=== PATIENT | female | born 1980 | race Caucasian/White ===

== ENCOUNTER 2021-03-15 08:49 | Observation (INO) | payer SELFPAY ==
[2021-03-15] VITALS (25 sets, daily range): BP systolic 103–133; BP diastolic 54–98; PULSE 61–91; RESP 16–26; TEMP 36.3–36.8; O2SAT 96–100; BMI 19.2
--- NOTE | 2021-03-15 09:01 | CT_ITS ---
WS: [id number] CT ABDOMEN PELVIS TECHNIQUE: Contrast-enhanced CT of the abdomen and pelvis with coronal and sagittal reformatted image s. CLINICAL INFORMATION: abd pain COMPARISON: None. DLP: 910.[address] scans at [facility] use at least one of these dose optimization techniques: automat ed exposure control; mA and/or kV adjustment per patient size (includes targeted exams where dose is matched to clinical indication); or iterative reconstruction. FINDINGS:Tortuous prominent enhancing fluid-filled appendix courses cephalad and medial to the cecum. This measures approximately 8 mm in maximum dimension suspicious for early acute appendicitis. No evidence of drainable abscess or fluid collection. No free air. Normal liver. Normal spleen. Normal portal vein and splenic vein. Normal GE junction. Lung bases are well aerated. Adrenal glands are normal. Normal renal parenchymal enhancement. No hydronephrosis. Urine distended bladder. Small amount of free fluid in the pelvis. Peripheral enhancing right ovarian cyst may represent corpus luteum cyst measuring 1.7 x 1.0 CM. Simple appearing left ovarian cyst migel suring 1.5 x 1.8 cm. Physiologic uterine enhancement. Fluid in the endometrial canal. Normal sigmoid colon. CT/CT abdomen pelvis w con* [id number] IMPRESSION: 1. Tortuous prominent enhancing fluid-filled appendix courses cephalad and med ial to the cecum. This measures approximately 8 mm in maximum dimension suspici ous for early acute appendicitis. 2. No evidence of drainable abscess or fluid collection. No free air. 3. Small amount of free fluid in the pelvis and bilateral ovarian cysts. Perip heral enhancing right ovarian cyst may be corpus luteum cyst. 4. Urine distended bladder. Notified Eugenio Espinoza DO at 03/15/2021 10:41 AM.
--- NOTE | 2021-03-15 09:02 | W.ED.ABDPA2 ---
HPI - Abdominal Pain General: Chief Complaint: Abdominal Pain Stated Complaint: ABD PAIN Time Seen by Provider: 03/15/21 08:52 History of Present Illness: HPI narrative: 40-year-old female presents emergency room complaint abdominal pain that began last night. She has been having nausea vomiting and somewhat diaphoretic as well. Began last night she was having difficulty with it actually came to the ER but then began to get better so she left. It worsened again overnight and has become more severe now. She noticed any slight jarring she has severe pain. She is not previously had any abdominal surgeries she denies eating anything the last 12 hours. She denies any hematochezia melena hematemesis coffee-ground emesis no dysuria urgency or frequency. Patient denies potential for being . MD elicited complaint: abdominal pain Onset (ago): hour(s) Pain Consistency: constant Location: RUQ and RLQ Severity: severe Quality: cramping and stabbing Radiation: R flank Exacerbating factors: movement Relieving factors: rest Associated Symptoms: Reports anorexia, bloating, GI cramping, diarrhea, nausea, poor appetite and vomiting; Denies belching, change in bowel habits, change in stool character, chills, coffee ground emesis, constipation, dyspepsia, dysuria, excessive flatus, fever(s), heartburn, hematochezia, hematuria, hematemesis, fecal incontinence, loose stools, melena and syncope Related Data: Date of Last Menstrual Period: 03/01/21 Review of Systems Const: Denies: fever(s) or chills ENMT: Denies: throat pain, ear or mastoid pain, nasal discharge or nasal congestion Card: Denies: syncope Resp: Denies: dyspnea, productive cough or non-productive cough GI: Reports: nausea, vomiting, diarrhea, bloating and GI cramping; Denies: hematemesis, coffee ground emesis, heartburn, constipation, belching, excessive flatus, fecal incontinence, change in bowel habits, change in stool character, hematochezia or melena : Denies: dysuria or hematuria Skin/Breast: Denies: rash or pruritus PFS ED PFSH: Medical History (Updated 03/15/21 @ 11:59 by Eugenio Espinoza DO) Hx of borderline personality disorder Hyperthyroidism history of Grave's disease Major depressive disorder Surgical History (Updated 03/15/21 @ 11:36 by Gilson Amaya MD) History of tonsillectomy Social History (Updated 03/15/21 @ 11:51 by Gilson Amaya MD) Smoking and tobacco status: current every day smoker cigarettes Packs smoked per day: 1 [ Other cigarette details: Smoking since 1996 ] Alcohol intake: never Substance/Drug Use: current Substance/Drug use frequency: daily Substance/Drug use type: Marijuana Current gender identity: Female Female Reproductive History: Date of last menstrual period: 03/01/21 Physical Exam Const: ORIENTATION/CONSCIOUSNESS: Yes oriented to person, Yes oriented to place and Yes oriented to time HENMT: COMMON NORMALS: normocephalic, atraumatic, hearing grossly normal bilaterally, external ears normal, EAC's normal, TM's normal bilaterally, Normal nasal mucous membranes and turbinates present, moist oral mucous membranes and oropharynx normal HEAD & SCALP: normocephalic and atraumatic NOSE: Normal nasal mucous membranes and turbinates present EXTERNAL EAR: Yes external ears normal EXTERNAL AUDITORY CANAL: EAC's normal TYMPANIC MEMBRANE: TM's normal bilaterally Neck/C-Spine: COMMON NORMALS: no JVD Resp: COMMON NORMALS: normal respiratory effort, No retractions, No use of accessory muscles and clear to auscultation bilaterally AUSCULTATION: clear to auscultation bilaterally Cardio: COMMON NORMALS: no JVD, regular rate, regular rhythm and No murmurs present (Cardio) RATE: regular rate RHYTHM: regular rhythm GI: AUSCULTATION: Yes Hypoactive bowel sounds present PALPATION: Yes Tenderness to palpation present (GI) Details: RLQ and RUQ and Yes Guarding due to palpation present (GI) in the RLQ and in the RUQ Extremity: COMMON NORMALS: normal to inspection, capillary refill normal, no clubbing, cyanosis or edema, no calf tenderness and no pedal edema Neuro: SENSORIUM/ORIENTATION: Yes oriented to person, Yes oriented to place and Yes oriented to time Skin: COMMON NORMALS: no rashes or lesions noted GENERAL SKIN EXAM: no rashes or lesions noted Course Vital Signs: Vital signs: Vital Signs Temperature 98.0 F 03/15/21 08:54 Pulse Rate 72 03/15/21 11:08 Respiratory Rate 16 03/15/21 11:08 Blood Pressure 106/56 03/15/21 11:08 Pulse Oximetry 99 03/15/21 11:08 MDM - Abdominal Pain MDM Narrative: Medical decision making narrative: Given bedside exam and white count I do believe she has an acute appendicitis CT is little difficult to read for radiology because she has very low body fat. The appendix is slightly enlarged and fluid-filled. She does have a little bit of fluid in the pelvis looks like from ovarian cysts however her exam is not consistent with that finding. Dr. Amaya is seen the patient he concurs is planning to take her to surgery for acute appendicitis. Lab Data: Labs: Lab Results 03/15/21 03/15/21 03/15/21 Range/Units 09:00 09:00 09:00 WBC 17.8 H (4.0-10.0) 10^3/ uL RBC 5.12 (4.1-5.3) 10^6/u L Hgb 14.5 (11.5-15.3) g/dL Hct 45.3 (37.0-47.0) % MCV 88.5 (81-99) fL MCH 28.3 (28.0-34.0) pg MCHC 32.0 (30.0-36.0) g/dL RDW 13.9 (12.1-15.1) % Plt Count 430 H (130-400) 10^3/c mm MPV 10.1 (7.4-10.4) fL Neut % (Auto) 73.7 % Lymph % (Auto) 17.3 % [place] % (Auto) 7.1 % Eos % (Auto) 0.7 % Baso % (Auto) 0.6 % Neut # (Auto) 13.12 H (1.8-7.7) 10^3/u L Lymph # (Auto) 3.1 (0.8-4.8) 10^3/u L [place] # (Auto) 1.3 H (0.2-0.9) 10^3/u L Eos # (Auto) 0.1 (0.0-0.8) 10^3/u L Baso # (Auto) 0.1 (0.0-0.1) 10^3/u L Nucleated RBC % (a uto) 0 % Nucleated RBCs # 0.0 /100WBC Sodium 140 (136-145) mmol/L Potassium 3.6 (3.5-5.1) mmol/L Chloride 103 (98-107) mmol/L Carbon Dioxide 22 (22-29) mmol/L Anion Gap 18.6 (5-19) BUN 8 (6-20) mg/dL Creatinine 0.7 (0.5-0.9) mg/dL GFR Calculation 93.6 (90-130) mL/min Glucose 102 (65-115) mg/dL Calculated Osmolal ity 289 (285-295) mOsm/k g Calcium 9.7 (8.5-10.5) mg/dL Total Bilirubin 0.5 (0.15-1.2) mg/dL AST 15 (0-32) U/L ALT 13 (0-33) U/L Alkaline Phosphata se 65 (35-105) IU/L Creatine Kinase 78 (26-192) U/L Total Protein 7.5 (6.6-8.7) g/dL Albumin 4.8 (3.5-5.2) g/dL Globulin 2.7 (1.3-4.6) g/dL Lipase 24 (13-60) U/L HCG, Qual Negative (Negative) Urine Color (Yellow) Urine Appearance (CLEAR) Urine pH (5-7) Ur Specific Gravit y (1.005-1.030) Urine Protein (Negative) Urine Glucose (UA) (Normal) Urine Ketones (Negative) Urine Blood (Negative) Urine Nitrate (Negative) Urine Bilirubin (Negative) Urine Urobilinogen (Negative) mg/dL Ur Leukocyte Naomi ase (Negative) Urine RBC (0-2) /hpf Urine WBC (0-5) /hpf Ur Squamous Epith Cells (0-5) /hpf Amorphous Sediment Urine Bacteria (NONE) /hpf 03/15/21 Range/Units 09:23 WBC (4.0-10.0) 10^3/ uL RBC (4.1-5.3) 10^6/u L Hgb (11.5-15.3) g/dL Hct (37.0-47.0) % MCV (81-99) fL MCH (28.0-34.0) pg MCHC (30.0-36.0) g/dL RDW (12.1-15.1) % Plt Count (130-400) 10^3/c mm MPV (7.4-10.4) fL Neut % (Auto) % Lymph % (Auto) % [place] % (Auto) % Eos % (Auto) % Baso % (Auto) % Neut # (Auto) (1.8-7.7) 10^3/u L Lymph # (Auto) (0.8-4.8) 10^3/u L [place] # (Auto) (0.2-0.9) 10^3/u L Eos # (Auto) (0.0-0.8) 10^3/u L Baso # (Auto) (0.0-0.1) 10^3/u L Nucleated RBC % (a uto) % Nucleated RBCs # /100WBC Sodium (136-145) mmol/L Potassium (3.5-5.1) mmol/L Chloride (98-107) mmol/L Carbon Dioxide (22-29) mmol/L Anion Gap (5-19) BUN (6-20) mg/dL Creatinine (0.5-0.9) mg/dL GFR Calculation (90-130) mL/min Glucose (65-115) mg/dL Calculated Osmolal ity (285-295) mOsm/k g Calcium (8.5-10.5) mg/dL Total Bilirubin (0.15-1.2) mg/dL AST (0-32) U/L ALT (0-33) U/L Alkaline Phosphata se (35-105) IU/L Creatine Kinase (26-192) U/L Total Protein (6.6-8.7) g/dL Albumin (3.5-5.2) g/dL Globulin (1.3-4.6) g/dL Lipase (13-60) U/L HCG, Qual (Negative) Urine Color Straw (Yellow) Urine Appearance Clear (CLEAR) Urine pH 7 (5-7) Ur Specific Gravit y 1.005 (1.005-1.030) Urine Protein Neg (Negative) Urine Glucose (UA) Norm (Normal) Urine Ketones Negative (Negative) Urine Blood 2+ H (Negative) Urine Nitrate Positive H (Negative) Urine Bilirubin Neg (Negative) Urine Urobilinogen Norm (Negative) mg/dL Ur Leukocyte Naomi ase Negative (Negative) Urine RBC 0-4 H (0-2) /hpf Urine WBC None (0-5) /hpf Ur Squamous Epith Cells Rare (0-5) /hpf Amorphous Sediment Not Reportable Urine Bacteria Trace (NONE) /hpf Discharge Plan Discharge Patient Disposition: Admitted As Inpatient Clinical Impression: Acute appendicitis Condition: Stable Prescriptions: No Action ibuprofen 200 mg Tablet 400 - 600 mg PO PRN RF: 0 CoQ-10 100 mg Capsule 100 mg PO DAILY RF: 0 Vitamin B-12 1 tab PO DAILY RF: 0 Vitamin D3 1 cap PO PRN RF: 0 biotin 2 cap PO DAILY RF: 0 Referrals: Shara Basurto MD [Primary Care Provider] - Patient Instructions: Appendicitis (GEN) Coding Level of Care Code ED Or Rn for Chg Fwd Exam Comprehensive
[2021-03-15] MEDS: sodium chloride 0.9% 1,000 ML 999 ML IV (09:16)
[2021-03-15] MEDS: ondansetron 2 mg/ML SDV 2 mL 4 MG IVP (09:16)
[2021-03-15] MEDS: morphine 4 mg/mL SDV 1 mL IVP ×5 (09:16→16:22)
[2021-03-15 09:18] LABS: Basophils # 0.1 10^3/uL (0.0-0.1); Basophils % 0.6 %; Eosinophils # 0.1 10^3/uL (0.0-0.8); Eosinophils % 0.7 %; Hematocrit 45.3 % (37.0-47.0); Hemoglobin 14.5 g/dL (11.5-15.3); Lymphocytes # 3.1 10^3/uL (0.8-4.8); Lymphocytes % 17.3 %; Mean Corpuscular Hemoglobin 28.3 pg (28.0-34.0); Mean Corpuscular Volume 88.5 fL (81-99); Mean Platelet Volume 10.1 fL (7.4-10.4); Monocytes # 1.3 10^3/uL (0.2-0.9); Monocytes % 7.1 %; Neutrophils # 13.12 10^3/uL (1.8-7.7); Neutrophils % 73.7 %; Nucleated Red Blood Cells % 0 %; Platelet Count 430 10^3/cmm (130-400); Red Blood Count 5.12 10^6/uL (4.1-5.3); Red Cell Distribution Width 13.9 % (12.1-15.1); White Blood Count 17.8 10^3/uL (4.0-10.0)
[2021-03-15 09:29] LABS: HCG, Serum Qual Negative (Negative)
--- NOTE | 2021-03-15 09:33 | PC.PHAR ---
PT STATES SHE TAKES CARE OF HER OWN MEDICATIONS-PT STATES SHE ONLY TAKES OTC MEDS-PT STATES SHE DCED HER CLONAZEPAM 2MG,METOPROLOL ER 25MG, EFFEXOR XR 225MG AND METHIMAZOLE IN SEP 2020
[2021-03-15 09:34] LABS: Specific Gravity, Urine 1.005 (1.005-1.030); Urine Appearance Clear (CLEAR); Urine Color Straw (Yellow); pH Urine 7 (5-7)
[2021-03-15 09:35] LABS: Add Urine Microscopic? YES; Bilirubin Urine Neg (Negative); Blood Urine 2+ (Negative); Glucose Urine UA Norm (Normal); Ketones Urine Negative (Negative); Leukocyte Esterase Urine Negative (Negative); Nitrate Urine Positive (Negative); Protein Urine Neg (Negative); Urobilinogen Urine Norm (Negative)
[2021-03-15 09:41] LABS: Alanine Aminotransferase 13 U/L (0-33); Albumin Level 4.8 g/dL (3.5-5.2); Alkaline Phosphatase 65 IU/L (35-105); Anion Gap 18.6 (5-19); Aspartate Amino Transferase 15 U/L (0-32); Blood Urea Nitrogen 8 mg/dL (6-20); Calcium 9.7 mg/dL (8.5-10.5); Carbon Dioxide 22 mmol/L (22-29); Chloride 103 mmol/L (98-107); Creatine Phosphokinase 78 U/L (26-192); Creatinine Clr Calc Pharmacy 119.7699; Globulin 2.7 g/dL (1.3-4.6); Glomerular Filtration Rate 93.6 mL/min (90-130); Glucose 102 mg/dL (65-115); Lipase 24 U/L (13-60); Osmolality Calculated 289 mOsm/kg (285-295); Potassium 3.6 mmol/L (3.5-5.1); Sodium 140 mmol/L (136-145); Total Bilirubin 0.5 mg/dL (0.15-1.2); Total Protein 7.5 g/dL (6.6-8.7)
[2021-03-15 09:42] LABS: RBC Urine 0-4 /hpf (0-2)
[2021-03-15] MEDS: iohexol 300 mg/mL 100 mL Btl IV (09:42)
[2021-03-15 09:43] LABS: Add Urine Culture? No; Bacteria Urine TRACE /hpf; Squamous Epithelial Cell Urine RARE /hpf (0-5)
--- NOTE | 2021-03-15 09:58 | PC.NURSE ---
Informed Dr Espinoza pt is continues with SEVERE pain. Received verbal order for Morphine 4 mg.
--- NOTE | 2021-03-15 11:45 | P.HP_ITS ---
Providers/Chief Complaint Admitting Physician: General Surgery Gilson Amaya MD Primary Care Provider: Shara Basurto MD Chief Complaint: ABD PAIN History of Present Illness Connie Brown is a 40 year old female who developed some epigastric pain yesterday afternoon around 3 or 4 PM. She had eaten [place] food for lunch and originally thought she might be getting food poisoning, although she has never had problems with [place] food before. She developed nausea and multiple episodes of vomiting without any evidence of hematemesis. She denies any changes in bowel habits. She said the pain and vomiting persisted last night and she noticed the pain was moving more to the right lower quadrant of her abdomen this morning. She has not taken her temperature at home but feels like she has had some chills. She denies any urinary symptoms. She came to the hospital and a CAT scan showed changes consistent with acute appendicitis. Review of Systems General: Reports: 10 or more systems reviewed and unremarkable except in HPI and below Const: Reports: chills Resp: Denies: dyspnea GI: Reports: abdominal pain, nausea and vomiting; Denies: hematemesis or change in bowel habits Medications/Allergies Home Medications Medication Instructions Recorded Confirmed Last Taken Type Vitamin B-12 1 tab PO DAILY 03/15/21 03/15/21 03/14/21 History Vitamin D3 1 cap PO PRN 03/15/21 03/15/21 Unknown History biotin 2 cap PO DAILY 03/15/21 03/15/21 03/14/21 History coenzyme Q10 [CoQ-10] 100 mg PO DAILY 03/15/21 03/15/21 Unknown History ibuprofen 400 - 600 mg PO PRN 03/15/21 03/15/21 Unknown History Allergies Allergy/AdvReac Type Severity Reaction Status Date / Time Sulfa (Sulfonamide Allergy Unknown Verified 03/15/21 09:33 Antibiotics) PFSH Acute PFSH: Medical History (Updated 03/15/21 @ 11:49 by Gilson Amaya MD) Hx of borderline personality disorder Hyperthyroidism history of Grave's disease Major depressive disorder Surgical History (Updated 03/15/21 @ 11:36 by Gilson Amaya MD) History of tonsillectomy Social History (Updated 03/15/21 @ 11:51 by Gilson Amaya MD) Smoking and tobacco status: current every day smoker cigarettes Packs smoked per day: 1 [ Other cigarette details: Smoking since 1996 ] Alcohol intake: never Substance/Drug Use: current Substance/Drug use frequency: daily Substance/Drug use type: Marijuana Current gender identity: Female Female Reproductive History: Date of last menstrual period: 03/01/21 Vitals/I&O/Wt Last Vital Signs Temp 98.0 F 03/15/21 08:54 Pulse 72 03/15/21 11:08 Resp 16 03/15/21 11:08 BP 106/56 03/15/21 11:08 Pulse Ox 99 03/15/21 11:08 03/14/21 03/15/21 03/15/21 22:59 06:59 14:59 Intake Total 1000 / 1000 Balance 1000 / 1000 Weight last 48 hrs Weight 142 lb Physical Exam Narrative: EXAM NARRATIVE: The patient was encountered in her room in the emergency department. She does not appear to be in any distress but acts like she just does not feel very well. The pupils are equal. No carotid bruits are heard. The lungs are clear anteriorly. The heart is regular. The abdomen is soft and reveals bowel sounds but she does have impressive tenderness over McBurney's point in the right lower quadrant with positive percussion tenderness and a positive Rovsing's sign. No obvious masses are palpated. The extremities reveal no edema. Neurologically the patient appears to be grossly intact. Data : 03/15/21 09:00 03/15/21 09:00 CT Abd/Pel: Radiologist's impression: CT abdomen/pel CT abdomen/pelvis 03/15/2021 IMPRESSION: 1. Tortuous prominent ehancing fluid-filled appendix courses cephalad and medial to the cecum. This measures approximately 8 mm in maximum dimension suspicious for early acute appendicitis. 2. No evidence of drainable abscess or fluid collection. No free air. 3. Small amount of free fluid in the pelvis and bilateral ovarian cysts. Peripheral enhancing right ovarian cyst may be corpus luteum cyst. 4. Urine distended bladder. A&P Assessment and plan (1) Acute appendicitis: CT reviewed. CT reviewed. I agree with the diagnosis of acute appendicitis. The patient's prodrome and clinical exam are very consistent with the same. I have discussed appendicitis with the patient in detail. Both conservative and surgical methods of management were gone over. Surgical risks including bleeding, infection, internal organ injury, etc. were all gone over. The patient seems to understand and would like to proceed with an appendectomy. The patient has been n.p.o. with the exception of some water this morning before she came into the emergency department. I am going to make arrangements for a laparoscopic or possibly open appendectomy today. Status: Acute Attestations Medical Necessity Statement*: Based on my medical assessment, presenting symptoms and consideration of the scope of surgical therapy, I expect this patient will require treatment in the hospital for a period of time spanning less than 2 midnights, and is therefore being placed in observation status. Coding Level of Care Code Acute Ultrasound Applications Specialist for Alina Mcbride Diagnoses Acute appendicitis K35.80
--- NOTE | 2021-03-15 12:45 | ANES.PREANE2 ---
Pre-Anesthetic Assessment Pre-Anesthetic Assessment: Height/Weight: Height 1.83 m Weight 64.41 kg Temp Pulse Resp BP Pulse Ox 97.3 F L 85 22 H 103/80 100 03/15/21 12:42 03/15/21 12:42 03/15/21 12:42 03/15/21 12:42 03/15/21 12:42 Proposed Procedure: Operation Date: 03/15/21 12:00 Proposed Procedures p Laparoscopic Appendectomy(Not Applicable) - Gilson Amaya MD Was Beta Tani taken within 24 hours: N/A Was Clonidine taken within 24 hours: N/A Social: Social History: Tobacco and No alcohol Exam: Pre-Anes Outpt Exam: alert, oriented x 3, clear to auscultation bilaterally and regular rate & rhythm Airway: Submandibular: WNL Cervical ROM: WNL MP: 2 Dentition: Chipped Additional comments: Very poor dentition, missing several, several cracked Pulmonary: Pulmonary: COPD GI: Comments: acute abdomen Metabolic: Metabolic: Thyroid Neuropsych: Neuropsych: Anxiety, Bipolar and Depression Anesthetic Plan: ASA status: 2E Anesthesia: General Risk of > 500 ml blood loss (7ml/kg in children): No PFSH Anesthesia PFSH: Medical History (Updated 03/15/21 @ 11:59 by Eugenio Espinoza DO) Hx of borderline personality disorder Hyperthyroidism history of Grave's disease Major depressive disorder Surgical History (Updated 03/15/21 @ 11:36 by Gilson Amaya MD) History of tonsillectomy Social History (Updated 03/15/21 @ 11:51 by Gilson Amaya MD) Smoking and tobacco status: current every day smoker cigarettes Packs smoked per day: 1 [ Other cigarette details: Smoking since 1996 ] Alcohol intake: never Substance/Drug Use: current Substance/Drug use frequency: daily Substance/Drug use type: Marijuana Current gender identity: Female Female Reproductive History: Date of last menstrual period: 03/01/21 Data Anesthesia CBC & Chem 7: 03/15/21 09:00 03/15/21 09:00 Other Labs: Laboratory Results - last 48 hr 03/15/21 03/15/21 03/15/21 09:00 09:00 09:00 WBC 17.8 H RBC 5.12 Hgb 14.5 Hct 45.3 MCV 88.5 MCH 28.3 MCHC 32.0 RDW 13.9 Plt Count 430 H MPV 10.1 Neut % (Auto) 73.7 Lymph % (Auto) 17.3 [place] % (Auto) 7.1 Eos % (Auto) 0.7 Baso % (Auto) 0.6 Neut # (Auto) 13.12 H Lymph # (Auto) 3.1 [place] # (Auto) 1.3 H Eos # (Auto) 0.1 Baso # (Auto) 0.1 Nucleated RBC % (auto) 0 Nucleated RBCs # 0.0 Sodium 140 Potassium 3.6 Chloride 103 Carbon Dioxide 22 Anion Gap 18.6 BUN 8 Creatinine 0.7 GFR Calculation 93.6 Glucose 102 Calculated Osmolality 289 Calcium 9.7 Total Bilirubin 0.5 AST 15 ALT 13 Alkaline Phosphatase 65 Creatine Kinase 78 Total Protein 7.5 Albumin 4.8 Globulin 2.7 Lipase 24 HCG, Qual Negative Urine Color Urine Appearance Urine pH Ur Specific [place] Urine Protein Urine Glucose (UA) Urine Ketones Urine Blood Urine Nitrate Urine Bilirubin Urine Urobilinogen Ur Leukocyte Esterase Urine RBC Urine WBC Ur Squamous Epith Cells Amorphous Sediment Urine Bacteria 03/15/21 09:23 WBC RBC Hgb Hct MCV MCH MCHC RDW Plt Count MPV Neut % (Auto) Lymph % (Auto) [place] % (Auto) Eos % (Auto) Baso % (Auto) Neut # (Auto) Lymph # (Auto) [place] # (Auto) Eos # (Auto) Baso # (Auto) Nucleated RBC % (auto) Nucleated RBCs # Sodium Potassium Chloride Carbon Dioxide Anion Gap BUN Creatinine GFR Calculation Glucose Calculated Osmolality Calcium Total Bilirubin AST ALT Alkaline Phosphatase Creatine Kinase Total Protein Albumin Globulin Lipase HCG, Qual Urine Color Straw Urine Appearance Clear Urine pH 7 Ur Specific [place] 1.005 Urine Protein Neg Urine Glucose (UA) Norm Urine Ketones Negative Urine Blood 2+ H Urine Nitrate Positive H Urine Bilirubin Neg Urine Urobilinogen Norm Ur Leukocyte Esterase Negative Urine RBC 0-4 H Urine WBC None Ur Squamous Epith Cells Rare Amorphous Sediment Not Reportable Urine Bacteria Trace Cardiac Studies: No Data to Display
[2021-03-15] MEDS: metroNIDAZOLE IV 500 MG/100 ML PREMIX 100 MG IV (13:00)
--- NOTE | 2021-03-15 13:31 | P.OP_ITS ---
Operative Report Date of procedure: March 15, 2021 Pre-op Diagnosis: Acute appendicitis. Post-op diagnosis: same Procedure Done: Laparoscopic appendectomy. Specimens removed/disposition: Appendix. Surgeon: Gilson Amaya Anesthesia: General Estimated blood loss (mL): 5 Complications: None. Condition: stable Disposition: PACU Procedure: The patient was brought to the Operating Room and was placed in a supine position on the operating room table. General endotracheal anesthesia was induced. The abdomen was prepped and draped in a sterile fashion. A small vertical incision was carried out in the inferior aspect of the umbilicus. Blunt dissection was carried out down to the fascia, which was grasped with a Arthur clamp. A stay suture of 0 Vicryl was placed on either side of the midline and the midline fascia was incised. The underlying peritoneum was opened bluntly and the Bernadette port was placed directly into the peritoneal cavity and was held in place with the inflatable balloon. The peritoneal cavity was insufflated with carbon dioxide. The laparoscope was used to inspect the peritoneal cavity. The patient had some light adhesions from the anterior surface of her liver to the abdominal/chest wall. These were eventually taken down laparoscopically. No other gross abnormalities were initially noted. Two 5-millimeter ports were placed in the left lower quadrant under direct vision. The patient was tilted in a Trendelenburg position and slightly to the left side. A laparoscopic Mando was used to elevate the cecum and the appendix was identified. The appendix was dilated and was stuck partially in a retrocecal location. The appendix was freed using blunt dissection and was then elevated. The appendix had some inflammatory changes but no gross evidence of perforation was present. The mesoappendix was divided using cautery to maintain hemostasis at the base of the appendix. The base of the appendix appeared healthy and was divided using an en doscopic stapler. The appendix was removed from the peritoneal cavity after being placed in a laparoscopic bag. The right lower quadrant and pelvis were irrigated. The staple line on the cecum was identified and appeared to be in good condition. The Bernadette port was removed from the umbilical site and the stay sutures of Vicryl were tied to each other at the umbilicus, closing the fascial defect so that it was airtight. A final round of irrigation was carried out in the right lower quadrant and the pelvis. No ongoing problems were seen. The remaining ports were removed from the abdominal wall as the pneumoperitoneum was evacuated. All skin incisions were closed using inverted interrupted sutures of 4-0 Vicryl. Benzoin and Steri-Strips were placed over the incisions and Band- Aids followed. The patient was taken to the Recovery Room in stable condition postoperatively.
[2021-03-15] MEDS: fentaNYL 50 mcg/mL INJ 2mL IVP ×2 (13:42→16:50)
[2021-03-15] MEDS: HYDROmorphone 1 mg/mL INJ 1 mL 0.5 MG IVP ×2 (13:54→16:49)
--- NOTE | 2021-03-15 14:38 | ANE.PACU2 ---
Inpatient post-anesthesia follow up: Airway intact: Yes Vital signs: Temperature 98.2 F Pulse Rate [Right Radial] 91 Pulse Rate 68 Respiratory Rate 17 Blood Pressure [Ri ght Arm] 133/88 Blood Pressure 114/85 Pulse Oximetry 100 Oxygen Delivery Me thod Room Air Oxygen Flow Rate 8 Fraction of Inspir ed Oxygen Hydration adequate: Yes Nausea and vomiting: No Pain level: 1 Mental status: Baseline
--- NOTE | 2021-03-15 17:53 | PM.DCS ---
Discharge Providers Date of Admission: 03/15/21 13:59 Date of Discharge: March 15, 2021 Attending Provider at Admission: Gilson Amaya MD Attending Provider at Discharge: Gilson Amaya MD Primary Care Provider: Shara Basurto MD Diagnoses at Discharge Discharge Diagnosis (1) Acute appendicitis: Status: Resolved Reason for Visit Reason for Visit: ABD PAIN Hospital Course Hospital Course This is a 40-year-old white female who developed abdominal pain the day prior to presentation to the emergency department. A CAT scan showed changes with acute appendicitis and she had a significant leukocytosis. She was counseled regarding an appendectomy and agreed to proceed. She underwent a laparoscopic appendectomy the same day which was without immediate complication. Postoperatively, the patient was feeling much better and was anxious to go home later in the afternoon. Nursing reported that her wounds look good and vital signs were stable. The patient was instructed with respect to wound care, activity limitations, diet, etc. Arrangements will be made for the patient to follow-up with me in the office as an outpatient. She was encouraged to call with any questions or concerns that came up in the interim. Physical Exam Narrative: EXAM NARRATIVE: Vital signs stable. Wounds appeared without complication. Discharge Data Data Completed and Pending: Completed Studies During Hospitalization Category Date Time Status CT abdomen pelvis w con* [id number] Stat Cat Scan 03/15/21 09:01 Completed Pending at discharge Category Date Time Status Pathology: Surgic al [PTH] Routine Pth 03/15/21 13:32 Ordered Labs from last 24 hours 03/15/21 03/15/21 03/15/21 09:23 09:00 09:00 WBC RBC Hgb Hct MCV MCH MCHC RDW Plt Count MPV Neut % (Auto) Lymph % (Auto) [place] % (Auto) Eos % (Auto) Baso % (Auto) Neut # (Auto) Lymph # (Auto) [place] # (Auto) Eos # (Auto) Baso # (Auto) Nucleated RBC % (a uto) Nucleated RBCs # Sodium 140 Potassium 3.6 Chloride 103 Carbon Dioxide 22 Anion Gap 18.6 BUN 8 Creatinine 0.7 GFR Calculation 93.6 Glucose 102 Calculated Osmolal ity 289 Calcium 9.7 Total Bilirubin 0.5 AST 15 ALT 13 Alkaline Phosphata se 65 Creatine Kinase 78 Total Protein 7.5 Albumin 4.8 Globulin 2.7 Lipase 24 HCG, Qual Negative Urine Color Straw Urine Appearance Clear Urine pH 7 Ur Specific Gravit y 1.005 Urine Protein Neg Urine Glucose (UA) Norm Urine Ketones Negative Urine Blood 2+ H Urine Nitrate Positive H Urine Bilirubin Neg Urine Urobilinogen Norm Ur Leukocyte Naomi ase Negative Urine RBC 0-4 H Urine WBC None Ur Squamous Epith Cells Rare Amorphous Sediment Not Reportable Urine Bacteria Trace 03/15/21 09:00 WBC 17.8 H RBC 5.12 Hgb 14.5 Hct 45.3 MCV 88.5 MCH 28.3 MCHC 32.0 RDW 13.9 Plt Count 430 H MPV 10.1 Neut % (Auto) 73.7 Lymph % (Auto) 17.3 [place] % (Auto) 7.1 Eos % (Auto) 0.7 Baso % (Auto) 0.6 Neut # (Auto) 13.12 H Lymph # (Auto) 3.1 [place] # (Auto) 1.3 H Eos # (Auto) 0.1 Baso # (Auto) 0.1 Nucleated RBC % (a uto) 0 Nucleated RBCs # 0.0 Sodium Potassium Chloride Carbon Dioxide Anion Gap BUN Creatinine GFR Calculation Glucose Calculated Osmolal ity Calcium Total Bilirubin AST ALT Alkaline Phosphata se Creatine Kinase Total Protein Albumin Globulin Lipase HCG, Qual Urine Color Urine Appearance Urine pH Ur Specific Gravit y Urine Protein Urine Glucose (UA) Urine Ketones Urine Blood Urine Nitrate Urine Bilirubin Urine Urobilinogen Ur Leukocyte Naomi ase Urine RBC Urine WBC Ur Squamous Epith Cells Amorphous Sediment Urine Bacteria Vitals: Last Vital Signs Temp 97.8 F 03/15/21 15:57 Pulse 65 03/15/21 16:14 Resp 18 03/15/21 16:22 BP 113/74 03/15/21 15:57 Pulse Ox 99 03/15/21 16:14 Discharge Plan Discharge Patient Disposition: Home Condition: Stable Prescriptions: New hydrocodone-acetaminophen 5-325 mg tablet 1 - 2 tab PO Q5H PRN (Reason: pain) Qty: 30 RF: 0 Continued ibuprofen 200 mg Tablet 400 - 600 mg PO PRN RF: 0 CoQ-10 100 mg Capsule 100 mg PO DAILY RF: 0 Vitamin B-12 1 tab PO DAILY RF: 0 Vitamin D3 1 cap PO PRN RF: 0 biotin 2 cap PO DAILY RF: 0 Discharge Orders: Discharge Order (Routine); Ordered 03/15/21 Ordered By: Gilson Amaya Referrals: Gilson Amaya MD [Physician] - 2 weeks (Nursing: have patient call Dr. Amaya's office ([phone]) on Thursday and make an appointment to be seen in 7-10 days.) Shara Basurto MD [Primary Care Provider] - (Please call Dr. Basurto's office and schedule an appointment to see her within one week.) Discharge Diet: Advance as tolerated Discharge Activity: Limit activity as instructed Patient Instructions: Hydrocodone/Acetaminophen (By mouth), Appendicitis (GEN), Opioid Safety Activity Restrictions/Additional Instructions: 1. Discharge to home. 2. Appointment to see Dr. Amaya in 10-14 days as above. 3. Bandaids off tomorrow, leave steri-strips on, february shower. 4. [place] 3/325 1-2 tablets by mouth every 5 hours as needed for pain. # 30, no refills. No lifting over 20 lbs, no strenuous pushing / pulling, repetetive bending or twisting. Ok to go up and down stairs if needed. Ambulate regularly. Discharge Attestations Time Spent in Discharge Care*: less than 30 min Quality Metrics Clinical Quality Measures During this hospital stay, did patient experience: None Coding Level of Care Code Acute Chg FW DC note Diagnoses Acute appendicitis K35.80
--- NOTE | 2021-03-18 18:17 | PC.RESP ---
Smoking Cessation information sent to patient.
== END 2021-03-15 17:54 | disposition home or self-care (01) ==
LOC: ER 11:59 → OR 12:31 → MEDSURG 13:59
PROVIDERS: Admitting Provider Surgery; Emergency Provider Family Medicine; PCP Family Medicine; Visit Provider Surgery
PROC: 0DTJ4ZZ Resection of Appendix, Percutaneous Endoscopic Approach (ICD-10-PCS; CPT 44970; principal; 2021-03-15 12:00)
DX: K35.80 Unspecified acute appendicitis (principal); J44.9 Chronic obstructive pulmonary disease, unspecified; F17.210 Nicotine dependence, cigarettes, uncomplicated
CPT/HCPCS: 44970; 74177; 80053; 81001; 82550; 83690; 84703; 85025; 88304; 94640; 96361; 96365; 96375; 96376; 99285; G0378; J0690; J1100; J1170; J2270; J2405; J2704; J2710; J3010; J3490; J7030; Q9967; S0030

== ENCOUNTER 2022-06-04 11:38 | Outpatient (CLI) | payer BC, OTHER, SELFPAY ==
--- NOTE | 2022-06-04 11:52 | MM_ITS ---
WS: [id number] DIAGNOSTIC BILATERAL DIGITAL BREAST TOMOSYNTHESIS MAMMOGRAPHY WITH CAD Bilateral breast ultrasound, limited HISTORY: [place]ALON BREAST MASSES COMPARISON: None available. TECHNIQUE: Bilateral craniocaudad, mediolateral oblique, and mediolateral views are submitted with to mosynthesis and SM. Spot compression bilateral CC. Computer aided detection utilized. Breast composition: The breasts are heterogeneously dense, which may obscure small masses. Dense fibr oglandular tissue throughout the breasts but more focal in the subareolar regions. No discrete masses are identified near the palpable markers. No nipple retraction. Ultrasound will be performed. Bilateral breast ultrasound, limited. Ultrasound is performed of each breast around the nipples in the palpable regions. These palpable are as correspond to mildly prominent ducts. There is no intraductal mass. No increased vascularity. Thes e are simple appearing ducts with mild ectasia. MM/[place] [id number] IMPRESSION: BI-RADS: 2-Benign FOLLOW UP: 1 Year Follow-up The palpable areas in the anterior breasts surrounding the areolar correspond t o mildly dilated ducts. No solid mass or increased vascularity. Probably mild d uct ectasia. Benign in appearance. If the patient is having bloody nipple disch arge further evaluation by surgery may be necessary.
== END 2022-06-04 11:39 | disposition home or self-care (01) ==
PROVIDERS: PCP Family Medicine; Visit Provider Nurse Practitioner Family
DX: N63.20 Unspecified lump in the left breast, unspecified quadrant (principal); N63.10 Unspecified lump in the right breast, unspecified quadrant
CPT/HCPCS: 76642; 77062